=== PATIENT | female | born 1990 | race Two or more races ===

== ENCOUNTER 2024-11-27 23:05 | Emergency (ER) | payer OTHER ==
[~2024-11-27] VITALS: Ht 170.2 cm; Wt 81.2 kg
[~2024-11-27 23:05] MED LIST: DOLOGESIC CAPSU1 CAP PO
[2024-11-28] MEDS ORDERED: KETOROLAC TROMETHAMINE 60 MG VIAL IM STA (00:26)
[2024-11-28 01:16] LABS: PH,URINE 5.5 (5.0-8.0); URINE APPEARANCE Clear; URINE BILIRRUBIN Negative (NEGATIVE); URINE BLOOD Negative; URINE COLOR Yellow; URINE KETONE Trace (NEGATIVE); URINE LEUKOCYTE Negative; URINE NITRATE Negative; URINE PROTEIN Negative (NEGATIVE); URINE UROBILINOGEN 0.2 E.U./dl
[2024-11-28 01:17] LABS: HEMATOCRIT 37.9 % (36.0-45.00); HEMOGLOBIN 12.8 g/dL (12.0-15.00); MEAN CELL VOLUME 88.4 fL (80.00-100.00); MEAN CORPUSCULAR HEMOGLOBIN 29.8 pg (27.00-32.0); MEAN CORPUSCULAR HGB CONC 33.7 g/dl (32.0-36.0); PLATELET COUNT 250 K/uL (150-450); RED BLOOD COUNT 4.29 M/uL (4.00-6.00); RED CELL DISTRIBUTION WIDTH 13.5 % (11.5-14.5)
[2024-11-28 01:21] LABS: URINE EPITHELIAL CELLS 35.6 uL (0.0-38.8); URINE RBC 5.8 uL (0.0-20.8); URINE WBC 45.1 uL (0.0-23.2)
[2024-11-28 01:24] LABS: URINE CAST 0.29 uL (0.0-1.40); URINE GLUCOSE >=1000 MG/DL (NEGATIVE)
[2024-11-28 02:44] LABS: ALBUMIN 3.6 gm/dL (3.4-5.0); ALKALINE PHOSPHATASE 82 U/L (50-136); ALT/SGPT 29 U/L (12-78); ANION GAP 10 (10.0-20.0); AST/SGOT 23 U/L (15-37); BILIRUBIN TOTAL 0.27 mg/dL (0.3-1.2); BLOOD UREA NITROGEN 15 mg/dL (7-18); BUN CREA RATIO 19 (7.0-25.0); CALCIUM 8.8 mg/dL (8.5-10.1); CARBON DIOXIDE 28 mEq/L (21-32); CHLORIDE 109 mmol/L (98-107); GFR 83.12; GLOBULINA 3.8 G/DL (2.4-3.5); GLUCOSE FASTING 99 mg/dL (65-100); OSMOLALITY SERUM 286 MOSM/KG (275-295); POTASSIUM 3.92 mEq/L (3.5-5.1); SODIUM 143 mmol/L (136-145); TOTAL PROTEIN 7.4 gm/dL (6.4-8.2)
[2024-11-28 02:52] LABS: HCG QUANTITATIVE < 1 mUI/mL (1-3)
[2024-11-28] MEDS ORDERED: KETO10TA2 PO (05:22)
== END 2024-11-28 05:25 ==
LOC: ER 23:08
PROVIDERS: General Practice
DX: D25.9 Leiomyoma of uterus, unspecified (principal)